=== PATIENT | female | born 1965 | race Caucasian/White ===

== ENCOUNTER → 2016-08-22 | Outpatient (CLI) | payer OTHER ==
[2015-04-05 14:55] VITALS: BP 121/70
[~2016-08-22] MED LIST: ASPI-482 PO; BUPR150T8 PO; CARB200T PO; CHOL100013 PO; CITA20TA9 PO; GADOBUTROL 10 MMOL/10 ML VIAL IV ONE; L.AC1CAP6 PO; LYSI500T3 PO; MAGN400C PO; MULT-658 PO; OMEG300C PO
--- NOTE | 2016-08-22 11:55 | RAD ---
PROCEDURE MRI of the brain without and with contrast 08/22/2016 HISTORY Left-sided facial pain for 9 months. Trigeminal neuralgia. TECHNIQUE Unenhanced T1 weighted sagittal and axial and FLAIR, T2 weighted, gradient echo and diffusion weighted axial images of the brain were obtained. Thin section T1 weighted axial and coronal and T2 weighted axial images through the brainstem to include the trigeminal nerves were obtained. After the intravenous administration of 8 cc of Gadavist, enhanced T1 weighted axial and coronal images of the brain were obtained. Thin section enhanced T1 weighted axial and coronal images through the brainstem include the trigeminal nerves were obtained. FINDINGS The ventricles and sulci are within normal limits in size and configuration. Patchy and several small focal areas of abnormally increased signal intensity are seen within the periventricular and subcortical white matter of both cerebral hemispheres on the FLAIR and T2 weighted images consistent most likely with areas of minimal small vessel ischemic disease. No acute parenchymal abnormality is seen. No extra-axial fluid collection is noted. No abnormal area of contrast enhancement is seen. Images through the proximal trigeminal nerves are within normal limits. No abnormal soft tissue mass or area of abnormal contrast enhancement is noted. A 3 centimeter mucous retention cyst is seen involving the left maxillary sinus. Mild mucosal thickening is seen scattered throughout the paranasal sinuses. Normal flow voids are seen within the major vascular structures surrounding the brain parenchyma. IMPRESSION No acute parenchymal abnormality is seen. Electronically signed by: Duy Boss MD (August 22, 2016 11:54:29)
== END | disposition home or self-care (01) ==
LOC: MRI 07:55
PROVIDERS: ATTEND Psychiatry & Neurology Neurology
DX: G50.0 Trigeminal neuralgia (principal)
CPT/HCPCS: 70553; A9585